=== PATIENT | female | born 1925 | race Caucasian/White ===

== ENCOUNTER 2016-07-05 16:03 | Inpatient (IN) | payer MEDICARE ==
[~2016-07-05] VITALS: Ht 165.1 cm; Wt 68.0 kg
--- NOTE | 2016-07-05 16:13 | NUR ---
PT BBRA FROM HOME: GENERALIZED BODY WEAKNESS. SP GLF LAST NIGHT DENIES ANY HEAD INJURY. DENIES ANY PAIN. NO SOB. PLACED ON MONITOR. VSS. AWAITING MD ORDER.
[2016-07-05] MEDS ORDERED: IV NS 0.9% 1,000 ML BAG IV ONE (17:00)
--- NOTE | 2016-07-05 17:00 | NUR ---
PT TAKEN TO CT SCAN
[2016-07-05 17:08] LABS: CARBON DIOXIDE 29 mmol/L (21-32); CHLORIDE 99 mmol/L (98-107); GLUCOSE 209 mg/dL (74-106); POTASSIUM 3.9 mmol/L (3.5-5.1); SODIUM SERUM 136 mmol/L (136-145); UREA NITROGEN, BLOOD 10 mg/dL (7-18)
[2016-07-05 17:12] LABS: INR 1.02 (0.87-1.13); PROTHROMBIN TIME 10.6 SECS (9.5-12.7)
[2016-07-05 17:14] LABS: ALANINE AMINOTRANSFERASE 20 U/L (12-78); ALBUMIN 3.3 g/dL (3.4-5.0); ALKALINE PHOSPHATASE 67 U/L (46-116); ASPARTATE AMINOTRANSFERASE 20 U/L (15-37); BILIRUBIN,DIRECT 0.1 mg/dL (0.0-0.2); BILIRUBIN,TOTAL 0.4 mg/dL (0.2-1.0)
[2016-07-05 17:16] LABS: BASOPHILS # (AUTO) 0.1 /CMM (0.0-0.2); BASOPHILS % (AUTO) 0.6 % (0.0-2.0); EOSINOPHILS % (AUTO) 0.5 % (0.0-6.0); HEMATOCRIT 37 % (33-45); HEMOGLOBIN 12.1 g/dL (11.5-14.8); LYMPHOCYTES # (AUTO) 0.6 /CMM (0.8-4.8); LYMPHOCYTES % (AUTO) 6.5 % (20.0-44.0); MEAN CORPUSCULAR HEMOGLOBIN 27 PG (26.0-33.0); MEAN CORPUSCULAR HGB CONC 33 g/dl (31.0-36.0); MEAN CORPUSCULAR VOLUME 82 fL (82-100); MONOCYTES # (AUTO) 0.8 /CMM (0.1-1.30); MONOCYTES % (AUTO) 8.4 % (2.0-12.0); NEUTROPHILS # (AUTO) 7.9 /CMM (1.8-8.9); PLATELET COUNT (AUTO) 249 /CMM (150-450); RED BLOOD CELL COUNT(AUTO) 4.49 MIL/uL (4.0-5.2); TROPONIN I < 0.017 ng/mL (0.00-0.056); WHITE BLOOD COUNT (AUTO) 9.4 K/uL (4.3-11.0)
[2016-07-05] MEDS ORDERED: IV NS 0.9% 1,000 ML ONE (17:24)
[2016-07-05] MEDS ORDERED: IV SET PRIMARY PUMP SET 1 EA INFUS.SET MC ONE ×2 (17:24→21:46)
--- NOTE | 2016-07-05 17:30 | NUR ---
RAC #20 IV ACCESS PATENT AND FLUSHING.
[2016-07-05] MEDS ORDERED: SOLI5TAB PO (17:31)
[2016-07-05] MEDS ORDERED: MEMA10TA PO (17:31)
[2016-07-05] MEDS ORDERED: PSYL0.525 PO (17:31)
[2016-07-05] MEDS ORDERED: ATOR10TA PO (17:31)
[2016-07-05] MEDS ORDERED: DULO30CA2 PO (17:31)
[2016-07-05] MEDS ORDERED: CHOL100044 PO (17:31)
[2016-07-05] MEDS ORDERED: FEXO180T94 PO (17:31)
[2016-07-05] MEDS ORDERED: Myrbetriq PO (17:31)
[2016-07-05] MEDS ORDERED: OMEP20TA20 PO (17:31)
[2016-07-05] MEDS ORDERED: TRAM-351 PO (17:31)
[2016-07-05] MEDS ORDERED: CYAN500T4 PO (17:31)
[2016-07-05] MEDS ORDERED: CALC600T12 PO (17:31)
[2016-07-05] MEDS ORDERED: RANI150T12 PO (17:31)
[2016-07-05] MEDS ORDERED: HYDR-3028 PO (17:31)
[2016-07-05] MEDS ORDERED: MULT-24 PO (17:31)
[2016-07-05] MEDS ORDERED: DONE5TAB3 PO (17:31)
[2016-07-05] MEDS ORDERED: MELA3TAB PO (17:31)
[2016-07-05] MEDS ORDERED: FAMO40TA70 PO (17:31)
[2016-07-05 18:13] LABS: APPEARANCE,URINE Clear (CLEAR); BILIRUBIN,URINE Negative (NEGATIVE); BLOOD, URINE Trace-intact Ery/uL (NEGATIVE); COLOR,URINE Yellow (YELLOW); KETONES,URINE Negative (NEGATIVE); LEUKOCYTE ESTERASE ,URINE Negative (NEGATIVE); NITRITE, URINE Negative (NEGATIVE); PROTEIN,URINE Trace mg/dl (NEGATIVE); UGLUCOSE Negative (NEGATIVE); UROBILINOGEN,URINE 0.2 EU/dL (0.2)
[2016-07-05 18:23] LABS: ADD URINE CULTURE NO; BACTERIA,URINE None seen /HPF (None Seen); SQUAMOUS EPITHELIAL CELL,UR Few /HPF (None Seen); WBC,URINE 0-2 /HPF (0-3)
--- NOTE | 2016-07-05 18:33 | NUR ---
Thien rodríguez in [facility] - 07/05/16 at 1834 by ITA PT TAKEN TO CT SCAN VIA [facility]
--- NOTE | 2016-07-05 18:33 | NUR ---
URINE SAMPLE COLLECTED SENT TO LAB
--- NOTE | 2016-07-05 18:44 | NUR ---
AFTAB PAGED, BOTTOM BUFFER
--- NOTE | 2016-07-05 18:46 | NUR ---
CALLED NURSING SUP. FOR MS BED
--- NOTE | 2016-07-05 19:02 | NUR ---
EPIC PAGED, TV PRODUCTION ASSISTANT
--- NOTE | 2016-07-05 19:12 | NUR ---
GAVE REPORT TO PAULINE FOR CHANGE OF SHFIT
[2016-07-05 20:00] VITALS: BP 162/84
--- NOTE | 2016-07-05 20:10 | NUR ---
CALLING REPORT TO GRACE MACDONALD
--- NOTE | 2016-07-05 20:10 | NUR ---
PT TO GO UP TO MS FLOOR AT 2029. NEED 20 MINS FOR CLEANING ROOM, PER MS CHARGE NURSE. ER CHARGE NURSE AWARE.
[2016-07-05] MEDS ORDERED: ONDANSETRON HCL/PF 4 MG/2 ML VIAL IVP PRN (20:30)
[2016-07-05] MEDS ORDERED: Z GUARD REMEDY 2 OZ OINT TP PRN (20:30)
[2016-07-05] MEDS ORDERED: ACETAMINOPHEN 325 MG TABLET PO PRN (20:30)
[2016-07-05] MEDS ORDERED: ENOXAPARIN SODIUM 40 MG/0.4 ML DISP.SYRIN SQ SCH (20:30)
[2016-07-05] MEDS ORDERED: MAGNESIUM HYDROXIDE 30 ML UDC PO PRN (20:30)
[2016-07-05] MEDS ORDERED: ZOLPIDEM TARTRATE 5 MG TABLET PO PRN (20:30)
[2016-07-05] MEDS ORDERED: MAG HYDROX/AL HYDROX/SIMETH 30 ML UDC PO PRN (20:30)
--- NOTE | 2016-07-05 20:30 | NUR ---
PT LEFT FOR MS FLOOR VIA [facility].
[2016-07-05 20:40] VITALS: BP 162/84
--- NOTE | 2016-07-05 20:40 | NUR ---
MS RN ADMITTING NOTES: ADMITTED AN 89 YO FEMALE PATIENT WHO WAS BROUGHT TO ER AFTER HAVING A GLF AT HOME YESTERDAY NIGHT. PATIENT WAS ALSO REPORTEDLY HAVING GENERALIZED WEAKNESS PER . PATIENT WAS BROUGHT TO UNIT VIA GURNEY, ON O2 AT 2 LPM VIA NC, AOX2, NOTED TO HAVE PERIODS OF CONFUSION AND KEEPS ASKING TO BE BROUGHT TO THE BATHROOM. APPEARS CALM AND IN NO DISTRESS. BREATHING IS EVEN AND UNLABORED BUT WAS NOTED TO HAVE OCCASIONAL COUGHING. BREATH SOUNDS CLEAR UPON AUSCULTATION. PIV ACCESS OVER RAC G 20 INTACT AND PATENT TO FLUSH. PROVIDED FOR COMFORT AND SAFETY. CALL LIGHT WITHIN REACH. BED IN LOWEST AND LOCKED POSITION, SIDERAILS UP X 3, BED ALARM TURNED ON. ORIENTED TO UNIT. WILL CONT TO MONITOR.
[2016-07-05] MEDS: IV NS 0.9% 1,000 ML IV PRN (21:57)
[2016-07-05] MEDS: HYDROCODONE/APAP 5/325MG 1 EACH TABLET PO PRN (21:58)
--- NOTE | 2016-07-05 22:00 | NUR ---
RN NOTES: SPOKE TO PATIENT'S (LIBBY DAILEY ) REGARDING PT'S CODE STATUS. PER , BOTH HE AND HIS HAD DNR ADVANCED DIRECTIVES FILED AT HOME, BUT FOR THIS PARTICULAR HOSPITALIZATION, HIS IS ON FULL CODE. ADVISED TO BRING COPY OF ADVANCE DIRECTIVES.
[2016-07-05] MEDS: ENOXAPARIN SODIUM 30 MG/0.3 ML DISP.SYRIN SQ SCH (22:07)
--- NOTE | 2016-07-05 23:00 | NUR ---
RN NOTES: INFORMED DR DAVENPORT THAT PT'S BP WAS RECHECKED AT 184/84 JUST NOW, AND PATIENT DOES NOT HAVE PRN BP MEDS. MD ORDERED FOR HYDRALAZINE 25 MG PO Q 6 PRN FOR SBP> 160. ALSO REFERRED TO MD PATIENT'S COUGHING, AND SLIGHT EXPIRATORY WHEEZING, THOUGH O2 SAT IS 98-100% ON ROOM AIR, AND PATIENT DOES NOT HAVE HX OF COPD. INFORMED MD THAT PT TAKES ROBITUSSIN AT HOME. ORDER MADE FOR ROBITUSSIN PRN PO FOR COUGH. ORDERS NOTED AND CARRIED OUT. WILL CONT TO MONITOR.
[2016-07-05 23:58] VITALS: BP 150/62
[2016-07-06] MEDS ORDERED: GUAIFENESIN/D-METHORPHAN HB 5 ML UDC ONE ×2 (02:16→05:25)
[2016-07-06] MEDS: GUAIFENESIN/D-METHORPHAN HB 5 ML UDC PO PRN ×2 (02:20→05:55)
[2016-07-06 05:24] VITALS: BP 163/68
[2016-07-06] MEDS ORDERED: hydrALAZINE HCL 25 MG TABLET ONE (05:25)
[2016-07-06] MEDS: hydrALAZINE HCL 25 MG TABLET PO PRN ×2 (05:55→21:03)
--- NOTE | 2016-07-06 05:59 | NUR ---
RN NOTES: PATIENT'S BP WAS CHECKED AT 163/68, HR: 88. ADMINISTERED APRESOLINE 25 MG PO PRN. WILL CONT TO MONITOR.
[2016-07-06 06:00] VITALS: BP_SYST 158; BP_SYST 166; BP_DIAS 66; BP_DIAS 89
--- NOTE | 2016-07-06 06:42 | NUR ---
MS RN CLOSING NOTES: PATIENT IN BED, AOX2, NOTED TO HAVE PERIODS OF CONFUSION. ON O2 AT 2 LPM VIA NC. BREATHING AT RATE OF 22/MIN, STILL NOTED OCCASIONAL COUGH. DUE MEDS GIVEN. PIV OVER RAC G20 INTACT AND INFUSING WELL WITH NS RUNNING AT 75 ML/HR. MORNING CARE RENDERED. TURNED AND REPOSITIONED PATIENT. CHECKED ORTHOSTATIC BPS (NEGATIVE). PROVIDED FOR COMFORT AND SAFETY. WILL ENDORSE TO AM RN FOR CATE.
[2016-07-06] MEDS: PANTOPRAZOLE 40 MG TABLET.DR PO SCH ×2 (06:55→09:00)
--- NOTE | 2016-07-06 07:13 | NUR ---
MS/RN AM NOTES RECEIVED PATIENT IN BED, AWAKE ALERT, WITHOUT SOB, DENIES PAIN, HOB ELEVATED 35 DEGREE, WITH OXYGEN IN PLACE, DELIVERING 2L/M N/C TOLERATING WELL, NO DISTRESS. IV LINE RAC INTACT, PATENT, WITH NS 75ML/H, NO REDNESS ON THE SITE. KEPT COMFORTABLE, BED LOW, 2 SR UP FOR SAFETY, WITH MARU LIGHT WITHIN EASY REACH. WILL CONTINUE TO MONITOR ACCORDINGLY
[2016-07-06 07:23] LABS: BASOPHILS % (AUTO) 0.3 % (0.0-2.0); EOSINOPHILS % (AUTO) 0.1 % (0.0-6.0); HEMATOCRIT 32 % (33-45); HEMOGLOBIN 10.7 g/dL (11.5-14.8); LYMPHOCYTES # (AUTO) 0.8 /CMM (0.8-4.8); MEAN CORPUSCULAR HEMOGLOBIN 27 PG (26.0-33.0); MEAN CORPUSCULAR HGB CONC 33 g/dl (31.0-36.0); MEAN CORPUSCULAR VOLUME 82 fL (82-100); MONOCYTES # (AUTO) 0.7 /CMM (0.1-1.30); MONOCYTES % (AUTO) 10.4 % (2.0-12.0); NEUTROPHILS # (AUTO) 5.5 /CMM (1.8-8.9); NEUTROPHILS % (AUTO) 77.2 % (43.0-81.0); PLATELET COUNT (AUTO) 229 /CMM (150-450); RDW COEFFICIENT OF VARIATION 13.1 (11.5-15.0); RED BLOOD CELL COUNT(AUTO) 3.92 MIL/uL (4.0-5.2); WHITE BLOOD COUNT (AUTO) 7.1 K/uL (4.3-11.0)
[2016-07-06 07:32] LABS: CREATININE 0.7 mg/dL (0.6-1.3); MAGNESIUM 1.8 mg/dL (1.8-2.4); PHOSPHORUS 2.6 mg/dL (2.5-4.9); POTASSIUM 3.3 mmol/L (3.5-5.1)
[2016-07-06 07:40] LABS: THYROID STIMULATING HORMONE 0.305 uIU/mL (0.358-3.74)
[2016-07-06 08:00] VITALS: BP 167/72
[2016-07-06] MEDS: DULOXETINE HCL 30 MG CAPSULE.DR PO SCH ×2 (09:00→18:41)
[2016-07-06] MEDS: CALCIUM CARBONATE 500 MG TAB.CHEW PO SCH ×2 (09:01→18:41)
[2016-07-06] MEDS: ATORVASTATIN 10 MG TABLET PO SCH (09:01)
[2016-07-06] MEDS: MEMANTINE HCL 5 MG TABLET PO SCH (09:01)
[2016-07-06] MEDS: MULTIVITAMINS,THERAPEUTIC 1 UDTAB TABLET PO SCH (09:01)
[2016-07-06] MEDS: DONEPEZIL 5 MG TABLET PO SCH (09:01)
[2016-07-06] MEDS: FEXOFENADINE HCL (60 MG) 60 MG TABLET PO SCH (09:07)
[2016-07-06] MEDS ORDERED: POTASSIUM CHLORIDE 20 MEQ TAB.PRT.SR PO ONE (10:00)
[2016-07-06] MEDS ORDERED: SECONDARY IV SET 1 EA INFUS.SET MC ONE (11:37)
[2016-07-06] MEDS: AZITHROMYCIN 500 MG in IV D5W 250 ML IV SCH (11:42)
[2016-07-06] MEDS: IV NS 0.9% 1,000 ML IV PRN (11:57)
[2016-07-06] MEDS: HYDROCODONE/APAP 5/325MG 1 EACH TABLET PO PRN (11:58)
[2016-07-06 16:00] VITALS: BP 154/66
[2016-07-06] MEDS: ACETYLCYSTEINE 10% SOLN 400 MG/4 ML VIAL NEB SCH ×2 (16:01→22:41)
--- NOTE | 2016-07-06 19:30 | NUR ---
MS/RN NOTES RECEIVED PT. LYING IN BED. AWAKE, ALERT AND ORIENTED X2. BREATHING EVEN AND UNLABORED ON 2LPM O2 VIA NC. NO SOB, RESPIRATORY DISTRESS OR COMPLAINTS OF PAIN NOTED AT THIS TIME. PT. WITH RIGHT AC 20 GAUGE PERIPHERAL IV PRESENT, PATENT AND INTACT ADMINISTERING TO PT. NS @ 75 ML/HR. BED IN LOWEST POSITION, BED ALARM ON, SIDE RAILS UP X2. CALL LIGHT WITHIN REACH, WILL CONTINUE TO MONITOR.
--- NOTE | 2016-07-06 19:32 | NUR ---
MS/RN CLOSING NOTES PATIENT IS IN BED, AWAKE, ALERT, ABLE TO MAKE NEEDS KNOWN, NO CHANGES IN MENTAL STATUS, NO SOB, OXYGEN 2L/M VIA N/C IN PLACE, TOLERATING WELL, NO CHEST PAIN. HOB ELEVATED 30 DEGREE. IV LINE ON BERNIE INTACT PATENT, WITH N/S 75 CC/H, NO S/SX OF FLUID OVERLOAD NOTED, BREATHING EVEN, UNLABORED. INCONTINENT CARE PROVIDED NEEDED, TURNED, REPOSITIONED EVERY 2H. KEPT CLEAN DRY COMFORTABLE, NEEDS MET IN TIMELY MANNER, WITH CALL LIGHT WITHIN EASY REACH, ENDORSED TO THE RETURN CLERK ACCORDINGLY FOR CATE
[2016-07-06 20:00] VITALS: BP 170/71
[2016-07-06] MEDS: ENOXAPARIN SODIUM 30 MG/0.3 ML DISP.SYRIN SQ SCH (21:03)
[2016-07-06] MEDS: IPRATROPIUM NEB FS 0.5 MG/2.5 ML AMPUL.NEB NEB PRN (22:38)
[2016-07-06] MEDS: ALBUTEROL FS 2.5 MG/0.5 ML VIAL.NEB NEB PRN (22:38)
[2016-07-07] MEDS: GUAIFENESIN/D-METHORPHAN HB 5 ML UDC PO PRN ×2 (01:21→09:47)
[2016-07-07] MEDS ORDERED: IV NS 0.9% 1,000 ML ONE (05:29)
[2016-07-07] MEDS: IV NS 0.9% 1,000 ML IV PRN (05:34)
--- NOTE | 2016-07-07 06:31 | NUR ---
MS/RN NOTES PT. LYING IN BED RESTING. BREATHING EVEN AND UNLABORED ON 2LPM O2 VIA NC. NO SOB, RESPIRATORY DISTRESS OR COMPLAINTS OF PAIN NOTED AT THIS TIME. PT. WITH RIGHT AC 20 GAUGE PERIPHERAL IV PRESENT, PATENT AND INTACT ADMINISTERING TO PT. NS @ 75 ML/HR. PT TOLERATING IV FLUIDS WELL. ALL PT. NEEDS MET. BED IN LOWEST POSITION, BED ALARM ON, SIDE RAILS UP X2. CALL LIGHT WITHIN REACH, WILL ENDORSE TO DAYSHIFT NURSE FOR CONTINUITY OF CARE.
[2016-07-07 07:38] LABS: CALCIUM, SERUM 8.2 mg/dL (8.5-10.1); CREATININE 0.7 mg/dL (0.6-1.3); POTASSIUM 3.3 mmol/L (3.5-5.1)
--- NOTE | 2016-07-07 07:40 | NUR ---
MS RN OPENING NOTES RECEIVED PT. FROM MEDICAL INTERPRETER NURSE LYING IN BED IN STABLE CONDITION. A/O X2. NO SOB OR SIGNS OF DISTRESS NOTED. NO PAIN EXPRESSED AT THIS TIME. IV ON RIGHT AC 20G PATENT AND INTACT. BED IN LOW LOCKED POSITION AND ALARM ON, SIDE RAILS UP X2, CALL LIGHT WITHIN PT.'S REACH. WILL CONTINUE TO MONITOR.
[2016-07-07 08:00] VITALS: BP 156/70
[2016-07-07] MEDS: ALBUTEROL FS 2.5 MG/0.5 ML VIAL.NEB NEB PRN ×2 (08:05→15:43)
[2016-07-07] MEDS: IPRATROPIUM NEB FS 0.5 MG/2.5 ML AMPUL.NEB NEB PRN ×2 (08:05→15:43)
[2016-07-07] MEDS: ACETYLCYSTEINE 10% SOLN 400 MG/4 ML VIAL NEB SCH ×3 (08:05→23:25)
[2016-07-07] MEDS: DULOXETINE HCL 30 MG CAPSULE.DR PO SCH ×2 (08:36→16:40)
[2016-07-07] MEDS: ATORVASTATIN 10 MG TABLET PO SCH (08:37)
[2016-07-07] MEDS: CALCIUM CARBONATE 500 MG TAB.CHEW PO SCH ×2 (08:37→16:40)
[2016-07-07] MEDS: MEMANTINE HCL 5 MG TABLET PO SCH (08:38)
[2016-07-07] MEDS: DONEPEZIL 5 MG TABLET PO SCH (08:38)
[2016-07-07] MEDS: MULTIVITAMINS,THERAPEUTIC 1 UDTAB TABLET PO SCH (08:38)
[2016-07-07] MEDS: FEXOFENADINE HCL (60 MG) 60 MG TABLET PO SCH (08:39)
[2016-07-07] MEDS ORDERED: POTASSIUM CHLORIDE 20 MEQ TAB.PRT.SR PO ONE (09:00)
[2016-07-07] MEDS: methylPREDNISolone SOD SUCC 40 MG/ML VIAL IV SCH ×3 (09:47→16:40)
[2016-07-07 10:00] VITALS: BP 156/70
[2016-07-07] MEDS: AZITHROMYCIN 500 MG in IV D5W 250 ML IV SCH (12:24)
[2016-07-07] MEDS: hydrALAZINE HCL 25 MG TABLET PO PRN (16:41)
[2016-07-07] MEDS ORDERED: BISACODYL SUPP (10 MG) 10 MG/SUPP.RECT SUPP.RECT RC PRN (18:30)
--- NOTE | 2016-07-07 18:30 | NUR ---
MS RN CLOSING NOTES PT LYING IN BED IN STABLE CONDITION. A/O X2. NO SOB OR SIGNS OF DISTRESS NOTED. NO PAIN EXPRESSED AT THIS TIME. IV ON RIGHT AC 20G PATENT AND INTACT. BED IN LOW LOCKED POSITION AND ALARM ON, SIDE RAILS UP X2, CALL LIGHT WITHIN PT.'S REACH. ALL ORDERS CARRIED OUT THROUGHOUT SHIFT. WILL ENDORSE TO NIGHTSHIFT NURSE FOR CATE
[2016-07-07] MEDS: ENOXAPARIN SODIUM 30 MG/0.3 ML DISP.SYRIN SQ SCH (21:56)
[2016-07-07 22:00] VITALS: BP 149/75
[2016-07-08] MEDS ORDERED: IV NS 0.9% 1,000 ML ONE (05:08)
[2016-07-08] MEDS: hydrALAZINE HCL 25 MG TABLET PO PRN (07:40)
--- NOTE | 2016-07-08 07:40 | NUR ---
MS RN OPENING NOTES: RECEIVED PT. IN STABLE CONDITION FROM SUPERVISOR FERTILIZER NURSE. PT. AWAKE AND LYING IN BED. A/O X2. NO SOB OR SIGNS OF DISTRESS NOTED. IV ON RIGHT ARM 20G PATENT AND INTACT. NC ON AT 2 L WELL TOLERATED BY PT. BED IN LOW LOCKED POSITION , SIDE RAILS UP X2, CALL LIGHT WITHIN REACH. WILL CONTINUE TO MONITOR.
[2016-07-08] MEDS: ACETYLCYSTEINE 10% SOLN 400 MG/4 ML VIAL NEB SCH ×3 (08:19→23:13)
[2016-07-08] MEDS: ALBUTEROL FS 2.5 MG/0.5 ML VIAL.NEB NEB PRN (08:20)
[2016-07-08] MEDS: IPRATROPIUM NEB FS 0.5 MG/2.5 ML AMPUL.NEB NEB PRN (08:20)
[2016-07-08] MEDS: MEMANTINE HCL 5 MG TABLET PO SCH (08:39)
[2016-07-08] MEDS: ATORVASTATIN 10 MG TABLET PO SCH (08:39)
[2016-07-08] MEDS: CALCIUM CARBONATE 500 MG TAB.CHEW PO SCH ×2 (08:39→17:39)
[2016-07-08] MEDS: methylPREDNISolone SOD SUCC 40 MG/ML VIAL IV SCH (08:39)
[2016-07-08] MEDS: DULOXETINE HCL 30 MG CAPSULE.DR PO SCH ×2 (08:39→17:39)
[2016-07-08 08:40] VITALS: BP 190/90
[2016-07-08] MEDS: DONEPEZIL 5 MG TABLET PO SCH (08:40)
[2016-07-08] MEDS: MULTIVITAMINS,THERAPEUTIC 1 UDTAB TABLET PO SCH (08:40)
[2016-07-08] MEDS: PANTOPRAZOLE 40 MG TABLET.DR PO SCH (08:40)
[2016-07-08] MEDS: FEXOFENADINE HCL (60 MG) 60 MG TABLET PO SCH (08:40)
[2016-07-08] MEDS: AMLODIPINE BESYLATE 2.5 MG TABLET PO SCH (09:51)
[2016-07-08] MEDS: FLUTICASONE 110MCG 1 EA INHALER IH SCH ×2 (09:51→20:55)
[2016-07-08 10:00] VITALS: BP 190/90
[2016-07-08] MEDS ORDERED: LEVOFLOXACIN 500 MG /D5W 100ML 500 MG in PREMIX 1 EA IV ONE (12:00)
[2016-07-08] MEDS ORDERED: SECONDARY IV SET 1 EA INFUS.SET MC ONE (12:32)
[2016-07-08 15:59] LABS: BASOPHILS % (AUTO) 0.1 % (0.0-2.0); HEMATOCRIT 39 % (33-45); HEMOGLOBIN 12.4 g/dL (11.5-14.8); LYMPHOCYTES # (AUTO) 0.6 /CMM (0.8-4.8); LYMPHOCYTES % (AUTO) 5.5 % (20.0-44.0); MEAN CORPUSCULAR HEMOGLOBIN 27 PG (26.0-33.0); MEAN CORPUSCULAR HGB CONC 32 g/dl (31.0-36.0); MEAN CORPUSCULAR VOLUME 82 fL (82-100); MONOCYTES # (AUTO) 0.3 /CMM (0.1-1.30); MONOCYTES % (AUTO) 2.7 % (2.0-12.0); NEUTROPHILS # (AUTO) 10.1 /CMM (1.8-8.9); NEUTROPHILS % (AUTO) 91.7 % (43.0-81.0); PLATELET COUNT (AUTO) 279 /CMM (150-450); RDW COEFFICIENT OF VARIATION 12.8 (11.5-15.0); RED BLOOD CELL COUNT(AUTO) 4.68 MIL/uL (4.0-5.2)
[2016-07-08 16:47] VITALS: BP 155/69
[2016-07-08] MEDS: BOOST FOOD- BERRY 237 ML BOX PO SCH (17:39)
[2016-07-08 19:00] VITALS: BP 154/69
--- NOTE | 2016-07-08 19:20 | NUR ---
RN NOTES RECEIVED PT AWAKE, HOB ELEVATED, RESTING COMFORTABLY IN BED, WITH O2 INHALATION AT 2LPM VIA NC AND TOLERATED WELL. PT ALERT AND ORIENTED X2, DENIES ANY PAIN AND DISCOMFORT, NO SOB, NOT IN DISTRESS. DIMINISHED BREATH SOUNDS AND MILD WHEEZING NOTED UPON AUSCULTATION. IV ACCESS ON RIGHT ARM PATENT AND INTACT. ALL NEEDS ATTENDED, KEPT BED IN THE LOWEST POSITION, LOCKED, SIDE RAILS UPX2, WITH CALL LIGHT WITHIN REACH. WILL CONTINUE TO MONITOR PT.
[2016-07-08] MEDS: ENOXAPARIN SODIUM 30 MG/0.3 ML DISP.SYRIN SQ SCH (20:55)
[2016-07-08] MEDS: GUAIFENESIN/D-METHORPHAN HB 5 ML UDC PO PRN (21:22)
--- NOTE | 2016-07-08 21:22 | NUR ---
RN NOTES PT HEARD COUGHING, NON PRODUCTIVE, ROBITUSSIN SYRUP GIVEN. WILL CONTINUE TO MONITOR PT.
[2016-07-08 22:00] VITALS: BP 154/69
[2016-07-09] MEDS: hydrALAZINE HCL 25 MG TABLET PO PRN ×2 (00:07→21:00)
--- NOTE | 2016-07-09 00:07 | NUR ---
RN NOTES PT VERBALIZING DIFFICULTY IN SLEEPING. VITAL SIGNS CHECKED BP 180/74, P92, TEMP 97.8, RR 19, O2 SAT 97% AT 2LPM O2. DENIES ANY PAIN AND DISCOMFORT. AMBIEN 5 MG TAB GIVEN PO FOR INSOMNIA AND HYDRALAZINE 25 MG TAB GIVEN PO FOR ELEVATED BP. WILL CONTINUE TO MONITOR PT.
[2016-07-09] MEDS: IV NS 0.9% 1,000 ML IV PRN ×2 (00:08→11:38)
--- NOTE | 2016-07-09 07:15 | NUR ---
RN NOTES PT ASLEEP, HOB ELEVATED, EXPIRATORY WHEEZING NOTED. PT COUGH AT TIMES, NO PRODUCTIVE. VITAL SIGNS STABLE, AFEBRILE. WITH LATEST BP OF 162/78 NO SOB, NO SIGNS OF DISTRESS AND DISCOMFORT NOTED. NO EPISODE NAUSEA AND VOMITING NOTED. BREATHING TREATMENT ADMINISTERED NEEDED. PT SLEPT WELL AFTER TAKING THE AMBIEN. ALL DUE MEDS GIVEN. ALL NEEDS ATTENDED. WILL ENDORSE TO MORNING RN FOR CONTINUITY OF CARE.
--- NOTE | 2016-07-09 07:30 | NUR ---
ms rn initial notes Received patient in bed, asleep, head of bed elevated, no SOB or distress noted. on 02 @ 2lpm via NC and tolerated well. Alert and Oriented x 2, verbally responsive. IV intact and patent with IVF infusing well. kept patient clean and comfortable in bed, call light with in patient reach, will continue to monitor accordingly.
[2016-07-09] MEDS: ACETYLCYSTEINE 10% SOLN 400 MG/4 ML VIAL NEB SCH ×4 (07:35→23:58)
[2016-07-09] MEDS: PANTOPRAZOLE 40 MG TABLET.DR PO SCH (07:40)
[2016-07-09 08:00] VITALS: BP 170/75
[2016-07-09] MEDS: GUAIFENESIN/D-METHORPHAN HB 5 ML UDC PO PRN ×3 (08:00→16:00)
[2016-07-09 08:14] LABS: BASOPHILS % (AUTO) 0.2 % (0.0-2.0); HEMATOCRIT 37 % (33-45); LYMPHOCYTES # (AUTO) 1.2 /CMM (0.8-4.8); LYMPHOCYTES % (AUTO) 12.8 % (20.0-44.0); MEAN CORPUSCULAR HEMOGLOBIN 27 PG (26.0-33.0); MEAN CORPUSCULAR HGB CONC 32 g/dl (31.0-36.0); MEAN CORPUSCULAR VOLUME 82 fL (82-100); MONOCYTES # (AUTO) 1.2 /CMM (0.1-1.30); MONOCYTES % (AUTO) 13.2 % (2.0-12.0); NEUTROPHILS # (AUTO) 6.9 /CMM (1.8-8.9); NEUTROPHILS % (AUTO) 73.8 % (43.0-81.0); PLATELET COUNT (AUTO) 286 /CMM (150-450); RDW COEFFICIENT OF VARIATION 12.7 (11.5-15.0); RED BLOOD CELL COUNT(AUTO) 4.49 MIL/uL (4.0-5.2); WHITE BLOOD COUNT (AUTO) 9.3 K/uL (4.3-11.0)
[2016-07-09 08:27] VITALS: BP 171/75
[2016-07-09 08:35] LABS: CALCIUM, SERUM 8.5 mg/dL (8.5-10.1); CREATININE 0.7 mg/dL (0.6-1.3); MAGNESIUM 1.8 mg/dL (1.8-2.4); PHOSPHORUS 2.1 mg/dL (2.5-4.9); POTASSIUM 3.5 mmol/L (3.5-5.1)
[2016-07-09] MEDS: BOOST FOOD- BERRY 237 ML BOX PO SCH (08:52)
[2016-07-09] MEDS: DULOXETINE HCL 30 MG CAPSULE.DR PO SCH ×2 (08:53→16:00)
[2016-07-09] MEDS: MEMANTINE HCL 5 MG TABLET PO SCH (08:53)
[2016-07-09] MEDS: ATORVASTATIN 10 MG TABLET PO SCH (08:53)
[2016-07-09] MEDS: MULTIVITAMINS,THERAPEUTIC 1 UDTAB TABLET PO SCH (08:53)
[2016-07-09] MEDS: DONEPEZIL 5 MG TABLET PO SCH (08:53)
[2016-07-09] MEDS: CALCIUM CARBONATE 500 MG TAB.CHEW PO SCH ×2 (08:53→16:00)
[2016-07-09] MEDS: AMLODIPINE BESYLATE 2.5 MG TABLET PO SCH (08:54)
[2016-07-09] MEDS: FEXOFENADINE HCL (60 MG) 60 MG TABLET PO SCH (08:55)
[2016-07-09] MEDS: ALBUTEROL FS 2.5 MG/0.5 ML VIAL.NEB NEB PRN (08:56)
[2016-07-09] MEDS: FLUTICASONE 110MCG 1 EA INHALER IH SCH ×2 (08:56→21:01)
[2016-07-09] MEDS ORDERED: predniSONE 5 MG TABLET PO SCH (09:00)
[2016-07-09] MEDS: LEVOFLOXACIN 250 MG /D5W 50 ML 250 MG in PREMIX 1 EA IV SCH (11:37)
[2016-07-09] MEDS: BOOST PLUS FOOD-CHOCLATE 237 ML BOX PO SCH ×2 (13:00→16:00)
[2016-07-09] MEDS: prednisoLONE ACET 1% OPHT DROP 5 ML BOTTLE LEFTEYE SCH ×2 (14:28→16:00)
--- NOTE | 2016-07-09 15:24 | NUR ---
PER PATIENT DOES NOT NEED CHEST PT AT THIS TIME. ORDER CANCELLED PER 'S ORDER.
[2016-07-09 16:00] VITALS: BP 137/79
[2016-07-09] MEDS ORDERED: K PHOS NEUTRAL 250 MG TABLET PO ONE (16:00)
[2016-07-09 16:55] VITALS: BP 161/79
--- NOTE | 2016-07-09 19:20 | NUR ---
RN NOTES RECEIVED PT AWAKE, HOB ELEVATED, RESTING COMFORTABLY IN BED, WITH O2 INHALATION AT 2LPM VIA NC AND TOLERATED WELL. PT ALERT AND ORIENTED X3, DENIES ANY PAIN AND DISCOMFORT, NO SOB, NOT IN DISTRESS. DIMINISHED BREATH SOUNDS AND MILD WHEEZING NOTED UPON AUSCULTATION. IV ACCESS ON LEFT ARM PATENT AND INTACT. ALL NEEDS ATTENDED, KEPT BED IN THE LOWEST POSITION, LOCKED, SIDE RAILS UPX2, WITH CALL LIGHT WITHIN REACH. WILL CONTINUE TO MONITOR PT.
--- NOTE | 2016-07-09 19:33 | NUR ---
ms rn closing notes All needs provided, attended, and anticipated. Kept patient clean and comfortable in bed, call light with in patient reach, will continue to monitor accordingly. Endorsed to next shift RN to continue care.
[2016-07-09] MEDS: ALBUTEROL FS 2.5 MG/0.5 ML VIAL.NEB NEB SCH (20:21)
[2016-07-09] MEDS: IPRATROPIUM NEB FS 0.5 MG/2.5 ML AMPUL.NEB NEB SCH (20:21)
[2016-07-09 20:45] VITALS: BP 165/73
[2016-07-09] MEDS: ENOXAPARIN SODIUM 30 MG/0.3 ML DISP.SYRIN SQ SCH (21:01)
[2016-07-09 22:00] VITALS: BP 165/73
[2016-07-10] MEDS: ALBUTEROL FS 2.5 MG/0.5 ML VIAL.NEB NEB SCH ×4 (01:38→20:18)
[2016-07-10] MEDS: IPRATROPIUM NEB FS 0.5 MG/2.5 ML AMPUL.NEB NEB SCH ×4 (01:39→20:18)
[2016-07-10] MEDS: IV NS 0.9% 1,000 ML IV PRN ×2 (05:37→21:28)
--- NOTE | 2016-07-10 06:52 | NUR ---
RN NOTES PT ASLEEP, HOB SLIGHTLY ELEVATED, BREATHING REGULAR AND UNLABORED, NO SIGNS OF DISTRESS AND DISCOMFORT NOTED. VITAL SIGNS STABLE, AFEBRILE. NO EPISODE OF NAUSEA AND VOMITING NOTED. SLEPT WELL, NO COMPLAIN OF PAIN WITHIN THE SHIFT. COUGH AT TIMES, NON PRODUCTIVE, RELIEVED BY COUGH SYRUP. ALL NEEDS ATTENDED. WILL ENDORSE TO MORNING RN FOR CONTINUITY OF CARE.
[2016-07-10] MEDS: prednisoLONE ACET 1% OPHT DROP 5 ML BOTTLE LEFTEYE SCH ×2 (06:56→16:20)
[2016-07-10] MEDS: ACETYLCYSTEINE 10% SOLN 400 MG/4 ML VIAL NEB SCH ×2 (07:03→14:49)
--- NOTE | 2016-07-10 07:30 | NUR ---
ms rn initial notes Received patient in bed, asleep, head of bed elevated, no SOB or distress noted, on 02 @ 2lpm via NC and tolerated well. IV intact and patent heplock only. Kept patient clean and comfortable in bed, call light with in patient reach, will continue to monitor accordingly.
[2016-07-10 07:47] LABS: BASOPHILS % (AUTO) 0.2 % (0.0-2.0); EOSINOPHILS % (AUTO) 0.1 % (0.0-6.0); HEMATOCRIT 34 % (33-45); HEMOGLOBIN 11.1 g/dL (11.5-14.8); LYMPHOCYTES # (AUTO) 1.5 /CMM (0.8-4.8); LYMPHOCYTES % (AUTO) 16.4 % (20.0-44.0); MEAN CORPUSCULAR HEMOGLOBIN 27 PG (26.0-33.0); MEAN CORPUSCULAR HGB CONC 33 g/dl (31.0-36.0); MEAN CORPUSCULAR VOLUME 83 fL (82-100); MONOCYTES # (AUTO) 1.2 /CMM (0.1-1.30); MONOCYTES % (AUTO) 13.7 % (2.0-12.0); NEUTROPHILS # (AUTO) 6.3 /CMM (1.8-8.9); NEUTROPHILS % (AUTO) 69.6 % (43.0-81.0); PLATELET COUNT (AUTO) 230 /CMM (150-450); RDW COEFFICIENT OF VARIATION 12.7 (11.5-15.0); RED BLOOD CELL COUNT(AUTO) 4.09 MIL/uL (4.0-5.2)
[2016-07-10] MEDS: PANTOPRAZOLE 40 MG TABLET.DR PO SCH (07:49)
[2016-07-10 08:00] VITALS: BP 165/68
[2016-07-10 08:02] LABS: CREATININE 0.6 mg/dL (0.6-1.3); MAGNESIUM 1.8 mg/dL (1.8-2.4); PHOSPHORUS 3.1 mg/dL (2.5-4.9); POTASSIUM 3.1 mmol/L (3.5-5.1)
[2016-07-10] MEDS: BOOST PLUS FOOD-CHOCLATE 237 ML BOX PO SCH ×3 (08:56→16:20)
[2016-07-10] MEDS: FLUTICASONE 110MCG 1 EA INHALER IH SCH ×2 (08:56→21:24)
[2016-07-10] MEDS: CALCIUM CARBONATE 500 MG TAB.CHEW PO SCH ×2 (08:57→16:17)
[2016-07-10] MEDS: FEXOFENADINE HCL (60 MG) 60 MG TABLET PO SCH (08:57)
[2016-07-10] MEDS: DULOXETINE HCL 30 MG CAPSULE.DR PO SCH ×2 (08:57→16:17)
[2016-07-10] MEDS: MULTIVITAMINS,THERAPEUTIC 1 UDTAB TABLET PO SCH (08:57)
[2016-07-10] MEDS: MEMANTINE HCL 5 MG TABLET PO SCH (08:57)
[2016-07-10] MEDS: predniSONE 5 MG TABLET PO SCH (08:57)
[2016-07-10] MEDS: AMLODIPINE BESYLATE 2.5 MG TABLET PO SCH (08:58)
[2016-07-10] MEDS: DONEPEZIL 5 MG TABLET PO SCH (08:58)
[2016-07-10] MEDS: ATORVASTATIN 10 MG TABLET PO SCH (08:59)
[2016-07-10] MEDS: GUAIFENESIN/D-METHORPHAN HB 5 ML UDC PO PRN ×3 (09:07→16:17)
[2016-07-10 10:00] VITALS: BP 165/68
[2016-07-10] MEDS ORDERED: POTASSIUM CHLORIDE 20 MEQ POWDER PACKET PO ONE (11:30)
[2016-07-10] MEDS: LEVOFLOXACIN 250 MG /D5W 50 ML 250 MG in PREMIX 1 EA IV SCH (12:09)
--- NOTE | 2016-07-10 15:10 | NUR ---
ms rn notes Patient had her PT therapy with Latasha and walked 30 feet with no discomfort, nor pain. On 02 with saturation of 97%. patient went back to bed after therapy and resting comfortably. Will continue to monitor accordingly.
[2016-07-10 16:00] VITALS: BP 157/82
--- NOTE | 2016-07-10 19:20 | NUR ---
RN NOTES RECEIVED PT AWAKE, HOB ELEVATED, RESTING COMFORTABLY IN BED, WITH O2 INHALATION AT 2LPM VIA NC AND TOLERATED WELL. PT ALERT AND ORIENTED X3, DENIES ANY PAIN AND DISCOMFORT, NO SOB, NOT IN DISTRESS. DIMINISHED BREATH SOUNDS AND WITH EXPIRATORY WHEEZING NOTED UPON AUSCULTATION. IV ACCESS ON LEFT FOREARM PATENT AND INTACT. ALL NEEDS ATTENDED, KEPT BED IN THE LOWEST POSITION, LOCKED, SIDE RAILS UPX2, WITH CALL LIGHT WITHIN REACH. WILL CONTINUE TO MONITOR PT.
[2016-07-10 20:47] VITALS: BP 161/92
[2016-07-10] MEDS: hydrALAZINE HCL 25 MG TABLET PO PRN (21:25)
--- NOTE | 2016-07-10 21:25 | NUR ---
RN NOTES ALL DUE MEDS GIVEN AND TOLERATED WELL. APRESOLINE 25MG TAB GIVEN PO AT THIS TIME FOR BP 170/72 AND HR 92. PT DENIES ANY PAIN AND DISCOMFORT AT THIS TIME.
[2016-07-10] MEDS: ENOXAPARIN SODIUM 30 MG/0.3 ML DISP.SYRIN SQ SCH (21:26)
[2016-07-10 22:00] VITALS: BP 170/72
[2016-07-11] MEDS: ACETYLCYSTEINE 10% SOLN 400 MG/4 ML VIAL NEB SCH ×3 (00:43→15:30)
[2016-07-11] MEDS: IPRATROPIUM NEB FS 0.5 MG/2.5 ML AMPUL.NEB NEB SCH ×4 (00:43→20:54)
[2016-07-11] MEDS: ALBUTEROL FS 2.5 MG/0.5 ML VIAL.NEB NEB SCH ×4 (00:43→20:54)
[2016-07-11] MEDS: prednisoLONE ACET 1% OPHT DROP 5 ML BOTTLE LEFTEYE SCH ×2 (06:32→18:59)
--- NOTE | 2016-07-11 06:44 | NUR ---
RN NOTES BP RECHECKED 143/72 HR 87. PT SLEEPING COMFORTABLY, NO SIGNS OF DISTRESS AND DISCOMFORT NOTED. WILL CONTINUE TO MONITOR PT.
--- NOTE | 2016-07-11 07:10 | NUR ---
RN NOTES PT ASLEEP, HOB ELEVATED, NO SOB, NO SIGNS OF DISTRESS AND DISCOMFORT NOTED, TOLERATING O2 INHALATION AT 2LPM VIA NC. VITAL SIGNS STABLE, AFEBRILE, NO EPISODE OF NAUSEA AND VOMITING. COUGH AT TIMES, NON PRODUCTIVE. ALL DUE MEDS GIVEN. ALL NEEDS ATTENDED. TURNED AND REPOSITIONED [id number]. KEPT PT CLEAN AND DRY. WILL ENDORSE TO MORNING RN FOR CONTINUITY OF CARE.
[2016-07-11 08:00] VITALS: BP 162/94
[2016-07-11] MEDS: AMLODIPINE BESYLATE 2.5 MG TABLET PO SCH (10:22)
[2016-07-11] MEDS: predniSONE 5 MG TABLET PO SCH (10:22)
[2016-07-11] MEDS: MEMANTINE HCL 5 MG TABLET PO SCH (10:22)
[2016-07-11] MEDS: MULTIVITAMINS,THERAPEUTIC 1 UDTAB TABLET PO SCH (10:23)
[2016-07-11] MEDS: FEXOFENADINE HCL (60 MG) 60 MG TABLET PO SCH (10:23)
[2016-07-11] MEDS: DULOXETINE HCL 30 MG CAPSULE.DR PO SCH ×2 (10:23→18:59)
[2016-07-11] MEDS: CALCIUM CARBONATE 500 MG TAB.CHEW PO SCH ×2 (10:23→18:59)
[2016-07-11] MEDS: PANTOPRAZOLE 40 MG TABLET.DR PO SCH (10:24)
[2016-07-11] MEDS: DONEPEZIL 5 MG TABLET PO SCH (10:24)
[2016-07-11] MEDS: ATORVASTATIN 10 MG TABLET PO SCH (10:24)
[2016-07-11] MEDS: FLUTICASONE 110MCG 1 EA INHALER IH SCH ×2 (10:41→21:02)
[2016-07-11] MEDS: GUAIFENESIN/D-METHORPHAN HB 5 ML UDC PO PRN ×2 (10:41→18:42)
[2016-07-11] MEDS: BOOST PLUS FOOD-CHOCLATE 237 ML BOX PO SCH ×3 (10:41→19:00)
[2016-07-11] MEDS: FLUTICASONE PROPIONATE 16 GM BOTTLE NS SCH ×2 (13:01→18:59)
[2016-07-11] MEDS: LEVOFLOXACIN 250 MG /D5W 50 ML 250 MG in PREMIX 1 EA IV SCH (13:01)
[2016-07-11 16:00] VITALS: BP 156/78
--- NOTE | 2016-07-11 18:00 | NUR ---
ALERT AND ORIENTED X 3.GIVEN ROBITUSSIN X 2 FOR FREQ. COUGH.AWARE SPUTUM NEEDED.CUP AT BEDSIDE RESP. TX. NOTIFIED.
[2016-07-11 19:00] VITALS: BP 156/72
--- NOTE | 2016-07-11 19:20 | NUR ---
RN NOTES RECEIVED PT AWAKE, HOB ELEVATED, RESTING COMFORTABLY IN BED, WITH O2 INHALATION AT 2LPM VIA NC AND TOLERATED WELL. PT ALERT AND ORIENTED X3, DENIES ANY PAIN AND DISCOMFORT, NO SOB, NOT IN DISTRESS. DIMINISHED BREATH SOUNDS NOTED UPON AUSCULTATION. IV ACCESS ON LEFT FOREARM PATENT AND INTACT WITH ONGOING IVF INFUSING WELL. KEPT BED IN THE LOWEST POSITION, LOCKED, SIDE RAILS UPX2, WITH CALL LIGHT WITHIN REACH. WILL CONTINUE TO MONITOR PT.
[2016-07-11] MEDS: IV NS 0.9% 1,000 ML IV PRN (21:06)
[2016-07-11] MEDS: ENOXAPARIN SODIUM 30 MG/0.3 ML DISP.SYRIN SQ SCH (21:06)
[2016-07-11 22:00] VITALS: BP 156/78
[2016-07-12] MEDS: GUAIFENESIN/D-METHORPHAN HB 5 ML UDC PO PRN ×2 (00:34→21:46)
--- NOTE | 2016-07-12 00:34 | NUR ---
RN NOTES PT HEARD COUGHING, NON PRODUCTIVE, ROBITUSSIN SYRUP GIVEN PO AND TOLERATED WELL.
[2016-07-12] MEDS: IPRATROPIUM NEB FS 0.5 MG/2.5 ML AMPUL.NEB NEB SCH ×4 (00:47→20:21)
[2016-07-12] MEDS: ACETYLCYSTEINE 10% SOLN 400 MG/4 ML VIAL NEB SCH ×4 (00:47→23:28)
[2016-07-12] MEDS: ALBUTEROL FS 2.5 MG/0.5 ML VIAL.NEB NEB SCH ×4 (00:47→20:21)
[2016-07-12] MEDS: prednisoLONE ACET 1% OPHT DROP 5 ML BOTTLE LEFTEYE SCH ×2 (06:35→18:39)
--- NOTE | 2016-07-12 07:13 | NUR ---
RN NOTES PT ASLEEP, HOB ELEVATED, NO SOB, NO SIGNS OF DISTRESS AND DISCOMFORT NOTED, TOLERATING O2 INHALATION AT 2LPM VIA NC. VITAL SIGNS STABLE, AFEBRILE, NO EPISODE OF NAUSEA AND VOMITING. COUGH AT TIMES, NON PRODUCTIVE. ALL DUE MEDS GIVEN. ALL NEEDS ATTENDED. TURNED AND REPOSITIONED [id number]. KEPT PT CLEAN AND DRY. WILL ENDORSE TO MORNING RN FOR CONTINUITY OF CARE.
--- NOTE | 2016-07-12 07:37 | NUR ---
MS RN OPENING NOTES RECEIVED PT. FROM NIGHTSHIFT NURSE IN STABLE CONDITION. PT. IS CURRENCY SLEEPING COMFORTABLE IN BED. NO SOB OR SIGNS OF DISTRESS AT THIS TIME. ON 2L O2 VIA NC. BREATHING IS EVEN AND UNLABORED. IV ON LEFT FOREARM 22G PATENT AND INTACT. NO REDNESS OR INFILTRATION NOTED. BED IN LOW LOCKED POSITION, SIDE RAILS UP X2, PT. CALL LIGHT WITHIN REACH. WILL CONTINUE TO MONITOR.
[2016-07-12 07:51] LABS: BASOPHILS % (AUTO) 0.3 % (0.0-2.0); EOSINOPHILS % (AUTO) 0.5 % (0.0-6.0); HEMATOCRIT 34 % (33-45); HEMOGLOBIN 11.1 g/dL (11.5-14.8); LYMPHOCYTES % (AUTO) 21.2 % (20.0-44.0); MEAN CORPUSCULAR HEMOGLOBIN 27 PG (26.0-33.0); MEAN CORPUSCULAR HGB CONC 33 g/dl (31.0-36.0); MEAN CORPUSCULAR VOLUME 83 fL (82-100); MONOCYTES # (AUTO) 1.1 /CMM (0.1-1.30); MONOCYTES % (AUTO) 11.8 % (2.0-12.0); NEUTROPHILS # (AUTO) 6.2 /CMM (1.8-8.9); NEUTROPHILS % (AUTO) 66.2 % (43.0-81.0); PLATELET COUNT (AUTO) 359 /CMM (150-450); RDW COEFFICIENT OF VARIATION 12.3 (11.5-15.0); RED BLOOD CELL COUNT(AUTO) 4.13 MIL/uL (4.0-5.2); WHITE BLOOD COUNT (AUTO) 9.4 K/uL (4.3-11.0)
[2016-07-12 08:00] VITALS: BP 170/80
[2016-07-12 08:08] LABS: CALCIUM, SERUM 8.5 mg/dL (8.5-10.1); CREATININE 0.6 mg/dL (0.6-1.3); MAGNESIUM 1.9 mg/dL (1.8-2.4); PHOSPHORUS 3.2 mg/dL (2.5-4.9); POTASSIUM 2.9 mmol/L (3.5-5.1)
[2016-07-12] MEDS: FLUTICASONE PROPIONATE 16 GM BOTTLE NS SCH ×2 (09:08→18:39)
[2016-07-12] MEDS: DONEPEZIL 5 MG TABLET PO SCH (09:09)
[2016-07-12] MEDS: MEMANTINE HCL 5 MG TABLET PO SCH (09:09)
[2016-07-12] MEDS: FLUTICASONE 110MCG 1 EA INHALER IH SCH ×2 (09:09→21:49)
[2016-07-12] MEDS: CALCIUM CARBONATE 500 MG TAB.CHEW PO SCH ×2 (09:10→18:39)
[2016-07-12] MEDS: FEXOFENADINE HCL (60 MG) 60 MG TABLET PO SCH (09:10)
[2016-07-12] MEDS: AMLODIPINE BESYLATE 2.5 MG TABLET PO SCH (09:10)
[2016-07-12] MEDS: ATORVASTATIN 10 MG TABLET PO SCH (09:10)
[2016-07-12] MEDS: predniSONE 5 MG TABLET PO SCH (09:10)
[2016-07-12] MEDS: PANTOPRAZOLE 40 MG TABLET.DR PO SCH (09:11)
[2016-07-12] MEDS: DULOXETINE HCL 30 MG CAPSULE.DR PO SCH ×2 (09:11→18:39)
[2016-07-12] MEDS: MULTIVITAMINS,THERAPEUTIC 1 UDTAB TABLET PO SCH (09:11)
[2016-07-12] MEDS: BOOST PLUS FOOD-CHOCLATE 237 ML BOX PO SCH ×3 (09:23→18:38)
[2016-07-12 09:34] LABS: ABG OXYGEN SATURATION 88.5 % (92.0-98.5); ABG PH 7.479 (7.350-7.450); ABG TOTAL HEMOGLOBIN 12.1 G/dL (12.0-16.0); AaDO2 50.2 mmHg; COHb 0.9 % (0.5-1.5); MetHb 0.6 % (0.0-1.5); O2Hb 87.2 % (94.0-97.0); SITE, ABG Left Brachial; VENT MODE, BG ROOM AIR
[2016-07-12 10:00] VITALS: BP 151/70
--- NOTE | 2016-07-12 10:05 | NUR ---
DR. BRADSHAW MADE AWARE OF PT. PO2 LEVEL
[2016-07-12] MEDS ORDERED: SECONDARY IV SET 1 EA INFUS.SET MC ONE (12:08)
[2016-07-12] MEDS ORDERED: IV NS 0.9% 250 ML IV ONE (12:09)
[2016-07-12] MEDS: POTASSIUM CL. PREMIX PERIPHER. 50 ML IV SCH ×6 (12:30→15:59)
[2016-07-12] MEDS: LEVOFLOXACIN 250 MG /D5W 50 ML 250 MG in PREMIX 1 EA IV SCH (12:59)
[2016-07-12] MEDS ORDERED: IV SET PRIMARY PUMP SET 1 EA INFUS.SET MC ONE (14:01)
--- NOTE | 2016-07-12 15:30 | NUR ---
PT RECEIVED 2 BAGS OF K+ BUT CAN NOT TOLERATE ANYMORE. PO VERSION HAS BEEN APPROVED BY CHRISTIANO DUMONT. WILL ADMINISTER THE PO KDUR AT THE SCHEDULED TIME.
[2016-07-12 16:00] VITALS: BP 170/90
[2016-07-12] MEDS ORDERED: POTASSIUM CHLORIDE 20 MEQ TAB.PRT.SR PO ONE (18:00)
--- NOTE | 2016-07-12 19:15 | NUR ---
MS RN CLOSING NOTES PT. IN STABLE CONDITION RESTING IN BED. NO SOB OR SIGNS OF DISTRESS AT THIS TIME. ON 2L O2 VIA NC. BREATHING IS EVEN AND UNLABORED. IV ON LEFT FOREARM 22G PATENT AND INTACT. NO REDNESS OR INFILTRATION NOTED. BED IN LOW LOCKED POSITION, SIDE RAILS UP X2, PT. CALL LIGHT WITHIN REACH. ALL ORDERS AND PT. NEEDS CARRIED OUT THROUGHOUT SHIFT. WILL ENDORSE TO NIGHTSHIFT NURSE FOR CATE
--- NOTE | 2016-07-12 19:30 | NUR ---
MS/SUSTAINABILITY OFFICER; RECEIVED PT. IN BED AWAKE, ALERT AND ORIENTED. WITH DVT PUMP ON LOWER LEGS. NOTED PT IS COUGHING. HL ON LFA INTACT. WITH 02 2L NC ON. BED ON LOWER POSITION AND LOCKED FOR SAFETY. SIDE RAILS ARE UP FOR SAFETY. CONTINUE TO MONITOR. CALL LIGHT WITHIN REACH.
[2016-07-12 20:00] VITALS: BP 178/75
--- NOTE | 2016-07-12 21:45 | NUR ---
MS/CLASSROOM AIDE; PT WANTS COUGH MED. ROBITUSSIN DM SYRUP 5 ML PO Q4 PRN FOR COUGH GIVEN.
[2016-07-12] MEDS: ENOXAPARIN SODIUM 30 MG/0.3 ML DISP.SYRIN SQ SCH (21:53)
[2016-07-13] MEDS: ALBUTEROL FS 2.5 MG/0.5 ML VIAL.NEB NEB SCH ×2 (01:51→08:38)
[2016-07-13] MEDS: IPRATROPIUM NEB FS 0.5 MG/2.5 ML AMPUL.NEB NEB SCH ×2 (01:51→08:38)
[2016-07-13] MEDS: prednisoLONE ACET 1% OPHT DROP 5 ML BOTTLE LEFTEYE SCH (06:21)
--- NOTE | 2016-07-13 06:47 | NUR ---
MS/DIVISIONAL HUMAN RESOURCES DIRECTOR; SLEPT FAIRLY. COUGHING STILL NOTED. BREATHING NON LABORED. CONTINUE TO MONITOR. CALL LIGHT WITHIN REACH. WILL ENDORSE TO THE DAY SHIFT NURSE.
[2016-07-13 08:00] VITALS: BP 161/75
[2016-07-13] MEDS: DULOXETINE HCL 30 MG CAPSULE.DR PO SCH (08:24)
[2016-07-13] MEDS: ATORVASTATIN 10 MG TABLET PO SCH (08:24)
[2016-07-13] MEDS: DONEPEZIL 5 MG TABLET PO SCH (08:25)
[2016-07-13] MEDS: CALCIUM CARBONATE 500 MG TAB.CHEW PO SCH (08:25)
[2016-07-13] MEDS: PANTOPRAZOLE 40 MG TABLET.DR PO SCH (08:25)
[2016-07-13] MEDS: predniSONE 5 MG TABLET PO SCH (08:25)
[2016-07-13] MEDS: AMLODIPINE BESYLATE 2.5 MG TABLET PO SCH (08:26)
[2016-07-13] MEDS: MULTIVITAMINS,THERAPEUTIC 1 UDTAB TABLET PO SCH (08:26)
[2016-07-13] MEDS: MEMANTINE HCL 5 MG TABLET PO SCH (08:26)
[2016-07-13] MEDS: FEXOFENADINE HCL (60 MG) 60 MG TABLET PO SCH (08:27)
[2016-07-13] MEDS: FLUTICASONE PROPIONATE 16 GM BOTTLE NS SCH (08:27)
[2016-07-13] MEDS: FLUTICASONE 110MCG 1 EA INHALER IH SCH (08:27)
[2016-07-13] MEDS: ACETYLCYSTEINE 10% SOLN 400 MG/4 ML VIAL NEB SCH (08:38)
[2016-07-13] MEDS: GUAIFENESIN/D-METHORPHAN HB 5 ML UDC PO PRN (08:41)
[2016-07-13] MEDS: BOOST PLUS FOOD-CHOCLATE 237 ML BOX PO SCH ×2 (08:59→12:52)
[2016-07-13 10:17] LABS: BASOPHILS % (AUTO) 0.3 % (0.0-2.0); EOSINOPHILS # (AUTO) 0.1 /CMM (0.0-0.7); EOSINOPHILS % (AUTO) 0.5 % (0.0-6.0); HEMATOCRIT 38 % (33-45); HEMOGLOBIN 12.4 g/dL (11.5-14.8); LYMPHOCYTES # (AUTO) 1.7 /CMM (0.8-4.8); LYMPHOCYTES % (AUTO) 14.4 % (20.0-44.0); MEAN CORPUSCULAR HEMOGLOBIN 27 PG (26.0-33.0); MEAN CORPUSCULAR HGB CONC 32 g/dl (31.0-36.0); MEAN CORPUSCULAR VOLUME 82 fL (82-100); MONOCYTES % (AUTO) 8.8 % (2.0-12.0); PLATELET COUNT (AUTO) 496 /CMM (150-450); RDW COEFFICIENT OF VARIATION 12.9 (11.5-15.0); RED BLOOD CELL COUNT(AUTO) 4.65 MIL/uL (4.0-5.2); WHITE BLOOD COUNT (AUTO) 11.8 K/uL (4.3-11.0)
[2016-07-13 10:31] LABS: CALCIUM, SERUM 9.5 mg/dL (8.5-10.1); CREATININE 0.7 mg/dL (0.6-1.3); MAGNESIUM 1.9 mg/dL (1.8-2.4); PHOSPHORUS 3.1 mg/dL (2.5-4.9); POTASSIUM 4.5 mmol/L (3.5-5.1)
[2016-07-13 13:24] VITALS: BP 166/86
[2016-07-13] MEDS: hydrALAZINE HCL 25 MG TABLET PO PRN (13:24)
--- NOTE | 2016-07-13 13:30 | NUR ---
MS RN CLOSING NOTES PT WAS DISCHARGED FROM THE UNIT AND LEFT VIA AMBULANCE TRANSPORT. SHE WAS IN STABLE CONDITION. NO SOB OR DISTRESS NOTED. ALL ORDERS WERE CARRIED OUT AND ALL PATIENT NEEDS WERE WELL ATTAINTED TO.
== END 2016-07-13 13:30 | DRG 193 ==
LOC: ER 16:14 → MED 20:25
PROVIDERS: ADMIT Internal Medicine; ATTEND Internal Medicine
DX: J15.9 Unspecified bacterial pneumonia (principal); G93.40 Encephalopathy, unspecified; E44.1 Mild protein-calorie malnutrition; J98.11 Atelectasis; E86.0 Dehydration; I25.10 Atherosclerotic heart disease of native coronary artery without angina pectoris; F03.90 Unspecified dementia, unspecified severity, without behavioral disturbance, psychotic disturbance, mood disturbance, and anxiety; K21.9 Gastro-esophageal reflux disease without esophagitis; W18.30XA Fall on same level, unspecified, initial encounter; Y92.002 Bathroom of unspecified non-institutional (private) residence as the place of occurrence of the external cause; M48.00 Spinal stenosis, site unspecified; I51.7 Cardiomegaly; E87.6 Hypokalemia; J20.9 Acute bronchitis, unspecified; M81.0 Age-related osteoporosis without current pathological fracture; F09 Unspecified mental disorder due to known physiological condition; E88.09 Other disorders of plasma-protein metabolism, not elsewhere classified; R09.82 Postnasal drip; Z68.25 Body mass index [BMI] 25.0-25.9, adult; I10 Essential (primary) hypertension; R29.6 Repeated falls
CPT/HCPCS: 36415; 36600; 70450-TC; 71010-TC; 80048-TC; 80061-TC; 80076-TC; 81000-TC; 83540-TC; 83605-TC; 83735-TC; 83880; 84100-TC; 84439-TC; 84443-TC; 84484-TC; 85025-TC; 85730-TC; 87040-TC; 87081-TC; 87400; 93307-TC; 94799-TC; 97001-TC; 97110-TC; 97112-TC; 97116-TC; 97530-TC; A4216; A4606; A6402; J0456; J1650; J1956; J2920; J3480; J7030; J7050; J7060; J7512; Z7610